=== PATIENT | male | born 1990 | race Caucasian/White ===

== ENCOUNTER 2020-07-06 13:23 | Inpatient (IN) ==
[2020-07-06] MEDS ORDERED: Al Hydrox/Mg Hydrox/Simet LIQ 30 ML UDC PO ONE (15:01)
[2020-07-06 15:50] LABS: ABS Eosinophils 0.2 10^3/ul (0-0.6); ABS Lymphocytes 1.5 10^3/ul (1.0-4.8); ABS Monocytes 0.7 10^3/ul (0-0.8); ABS Neutrophils 7.8 10^3/ul (1.5-7.7); Hematocrit 52 % (42-52); Lymphocyte % 14.4 %; Mean Corpuscular HGB Conc 34 g/dL (31-36); Mean Corpuscular Hemoglobin 32 pg (27-31); Mean Corpuscular Volume 93 fL (80-94); Mean Platelet Volume 8.2 fL (7.4-10.4); Platelet Count 428 10^3/uL (150-450); Red Blood Count 5.59 10^6 /uL (4.18-5.48); Red Cell Distribution Width 13 % (10-15); White Blood Count 10.2 10^3/uL (3.5-10.8)
[2020-07-06 17:07] LABS: ALT 24 U/L (7-52); Albumin 4.8 g/dL (3.2-5.2); Albumin/Globulin Ratio 1.2 (1-3); Alkaline Phosphatase 102 U/L (34-104); BUN/Creatinine Ratio 17.3 (8-20); Blood Urea Nitrogen 22 mg/dL (6-24); C Reactive Protein 1.75 mg/L (<8.01); Calcium 9.2 mg/dL (8.6-10.3); Chloride 91 mmol/L (101-111); EGFR African American 80.6 (>60); EGFR Non-African American 66.6 (>60); Globulin 3.9 g/dL (2-4); Glucose 410 mg/dL (70-100); Lipase 43 U/L (11.0-82.0); Sodium 124 mmol/L (135-145); Total Protein 8.7 g/dL (6.4-8.9)
[2020-07-06 17:09] LABS: Anion Gap 24 mmol/L (2-11); CO2 Carbon Dioxide 9 mmol/L (22-32)
[2020-07-06] MEDS ORDERED: NS 0.9% 1000 ml BAG 1,000 ML IV ONE (17:20)
[2020-07-06] MEDS ORDERED: NS 0.9% 1000 ml BAG 2,000 ML IV ONE (17:21)
[2020-07-06] MEDS ORDERED: Insulin Infusion 100unit/100mL 100 UNIT/100 ML BAG IV ONE (17:22)
[2020-07-06] MEDS ORDERED: NORMOSOL-R pH 7.4 1000 mL BAG 1,000 ML IV SCH (18:00)
[2020-07-06 18:47] LABS: BUN/Creatinine Ratio 18.8 (8-20); Calcium 8.9 mg/dL (8.6-10.3); EGFR African American 93.1 (>60)
[2020-07-06 19:14] LABS: Phosphorus 3.7 mg/dL (2.5-5.0)
[2020-07-06 19:23] LABS: Potassium 4.5 mmol/L (3.5-5.0)
[2020-07-06 19:39] LABS: Urine Appearance Clear; Urine Bilirubin Negative (Negative); Urine Blood 1+ (Negative); Urine Color Straw; Urine Glucose 3+(>=500 mg/dL) (Negative); Urine Ketones 2+ (Negative); Urine Nitrite Negative (Negative); Urine Protein 1+(30 mg/dL) (Negative); Urine Specific Gravity 1.027 (1.010-1.030); Urine Urobilinogen Negative (Negative)
[2020-07-06 19:44] LABS: Urine Bacteria Absent (Absent); Urine Red Blood Cell Trace(0-2/hpf) (Absent); Urine White Blood Cell Trace(0-5/hpf) (Absent)
[2020-07-06] MEDS: KCL 10 MEQ/50 ML IVPREMIX 10 MEQ/50 ML BAG IV SCH ×2 (20:58→22:18)
[2020-07-06] MEDS ORDERED: D5LR 1000 ml BAG 1,000 ML IV SCH (21:00)
[2020-07-06] MEDS ORDERED: Insulin Infusion 100unit/100mL 100 UNIT/100 ML BAG IV SCH (21:00)
[2020-07-06 22:51] LABS: BUN/Creatinine Ratio 17.3 (8-20); Calcium 7.5 mg/dL (8.6-10.3); EGFR African American 108.7 (>60); EGFR Non-African American 89.8 (>60); Potassium 3.5 mmol/L (3.5-5.0)
[2020-07-06] MEDS ORDERED: D10W 1000 ml BAG 1,000 ML IV SCH (23:00)
[2020-07-07 02:28] LABS: BUN/Creatinine Ratio 17.7 (8-20); Calcium 7.2 mg/dL (8.6-10.3); EGFR African American 139.3 (>60); EGFR Non-African American 115.2 (>60); Magnesium 1.9 mg/dL (1.9-2.7); Potassium 3.6 mmol/L (3.5-5.0)
[2020-07-07 02:30] LABS: Troponin I 0.01 ng/mL (<0.03)
[2020-07-07] MEDS ORDERED: NS 0.9% 1000 ml BAG 1,000 ML IV SCH (04:15)
[2020-07-07 05:55] LABS: BUN/Creatinine Ratio 16.3 (8-20); Calcium 7.5 mg/dL (8.6-10.3); EGFR African American 126.3 (>60); EGFR Non-African American 104.4 (>60); Magnesium 1.9 mg/dL (1.9-2.7); Potassium 3.6 mmol/L (3.5-5.0)
[2020-07-07] MEDS ORDERED: Dextrose 50% Syringe 50 ml 25 GM/50 ML SYRINGE IV PUSH PRN ×3 (06:17→21:17)
[2020-07-07] MEDS ORDERED: Insulin GLARGINE 100 un/ml 10 ml VIAL SUBCUT ONE (06:17)
[2020-07-07] MEDS ORDERED: Potassium Chlor 20 meq TAB.ER PO ONE (08:30)
[2020-07-07] MEDS ORDERED: Magnesium Sulfate 2 gm BAG 2 GM/50 ML BAG IVPB ONE (08:38)
[2020-07-07] MEDS ORDERED: Pantoprazole VIAL 40 MG VIAL IV SCH (09:00)
[2020-07-07] MEDS ORDERED: Insulin GLARGINE 100 un/ml 10 ml VIAL SUBCUT SCH (09:30)
[2020-07-07 11:50] LABS: BUN/Creatinine Ratio 16.4 (8-20); Calcium 7.5 mg/dL (8.6-10.3); EGFR African American 152.6 (>60); EGFR Non-African American 126.2 (>60); Magnesium 2.4 mg/dL (1.9-2.7); Potassium 3.7 mmol/L (3.5-5.0)
[2020-07-07 14:27] LABS: Urine Benzodiazepine Screen None Detected (None Detect); Urine Cannabinoids Screen None Detected (None Detect); Urine Opiates Screen None Detected (None Detect)
[2020-07-07 20:14] LABS: BUN/Creatinine Ratio 19.4 (8-20); Calcium 7.9 mg/dL (8.6-10.3); EGFR African American 155.1 (>60); EGFR Non-African American 128.2 (>60); Potassium 3.9 mmol/L (3.5-5.0)
[2020-07-07 20:50] LABS: Glucose Confirmatory 426 mg/dL (70-100)
[2020-07-08 08:19] LABS: ABS Basophils 0.1 10^3/ul (0-0.2); ABS Eosinophils 0.3 10^3/ul (0-0.6); ABS Lymphocytes 1.8 10^3/ul (1.0-4.8); ABS Monocytes 0.4 10^3/ul (0-0.8); ABS Neutrophils 2.7 10^3/ul (1.5-7.7); Eosinophil % 5.5 %; Hematocrit 36 % (42-52); Hemoglobin 12.6 g/dL (14.0-18.0); Lymphocyte % 34.4 %; Mean Corpuscular HGB Conc 35 g/dL (31-36); Mean Corpuscular Hemoglobin 32 pg (27-31); Mean Corpuscular Volume 91 fL (80-94); Mean Platelet Volume 8.4 fL (7.4-10.4); Platelet Count 258 10^3/uL (150-450); Red Blood Count 3.97 10^6 /uL (4.18-5.48); Red Cell Distribution Width 13 % (10-15); White Blood Count 5.4 10^3/uL (3.5-10.8)
[2020-07-08 08:26] LABS: BUN/Creatinine Ratio 17.4 (8-20); Calcium 7.8 mg/dL (8.6-10.3); EGFR African American 162.9 (>60); EGFR Non-African American 134.6 (>60); Magnesium 1.8 mg/dL (1.9-2.7); Potassium 3.3 mmol/L (3.5-5.0)
[2020-07-08] MEDS ORDERED: Insulin GLARGINE 100 un/ml 10 ml VIAL SUBCUT SCH ×2 (09:00)
[2020-07-08 18:22] VITALS: BP 127/70
== END 2020-07-08 17:00 | disposition home or self-care (01) | DRG 638 ==
LOC: ED 13:23 → ICU 18:08 → MED 07-07 11:19
PROVIDERS: ADMIT Internal Medicine; ATTEND Hospitalist

== ENCOUNTER 2021-02-21 21:17 | Inpatient (IN) ==
[2021-02-22] MEDS ORDERED: NS 0.9% 1000 ml BAG 1,000 ML IV ONE (01:00)
[2021-02-22 01:41] LABS: Urine Appearance Clear; Urine Bilirubin Negative (Negative); Urine Blood Negative (Negative); Urine Color Colorless; Urine Glucose 3+(>=500 mg/dL) (Negative); Urine Ketones 2+ (Negative); Urine Nitrite Negative (Negative); Urine Protein Negative (Negative); Urine Specific Gravity 1.025 (1.002-1.030); Urine Urobilinogen Negative (Negative)
[2021-02-22 02:00] LABS: Albumin 3.9 g/dL (3.2-5.2); Albumin/Globulin Ratio 1.6 (1-3); Alkaline Phosphatase 88 U/L (35-149); Anion Gap 18 mmol/L (2-11); C Reactive Protein < 1.00 mg/L (<8.01); CO2 Carbon Dioxide 13 mmol/L (22-32); Calcium 8.2 mg/dL (8.6-10.3); Chloride 92 mmol/L (101-111); Globulin 2.4 g/dL (2-4); Glucose 506 mg/dL (70-100); Sodium 123 mmol/L (135-145); Total Protein 6.3 g/dL (6.4-8.9)
[2021-02-22] MEDS ORDERED: Lactated Ringers 1000 ml BAG 1,000 ML IV ONE (02:44)
[2021-02-22 02:45] LABS: Blood Urea Nitrogen 14 mg/dL (6-24); Hemoglobin 12.9 g/dL (14.0-18.0)
[2021-02-22] MEDS ORDERED: Insulin Infusion 100unit/100mL 100 UNIT/100 ML BAG IV ONE (02:45)
[2021-02-22 02:50] LABS: Mean Corpuscular HGB Conc 33 g/dL (31-36); Mean Corpuscular Hemoglobin 32 pg (27-31)
[2021-02-22 02:51] LABS: Hematocrit 39 % (42-52); Mean Corpuscular Volume 96 fL (80-94); Mean Platelet Volume 8.5 fL (7.4-10.4); Platelet Count 361 10^3/uL (150-450); Red Blood Count 4.02 10^6 /uL (4.18-5.48); Red Cell Distribution Width 14 % (10-15); White Blood Count 5.7 10^3/uL (3.5-10.8)
[2021-02-22 02:52] LABS: ABS Basophils 0.1 10^3/ul (0-0.2); ABS Eosinophils 0.3 10^3/ul (0-0.6); ABS Lymphocytes 1.8 10^3/ul (1.0-4.8); ABS Monocytes 0.4 10^3/ul (0-0.8); ABS Neutrophils 3.1 10^3/ul (1.5-7.7); Eosinophil % 4.8 %; Lymphocyte % 31.4 %; Nucleated Red Blood Cells % 0.1
[2021-02-22] MEDS ORDERED: NORMOSOL-R pH 7.4 1000 mL BAG 1,000 ML IV ONE (03:25)
[2021-02-22] MEDS ORDERED: Dextrose 50% Syringe 50 ml 25 GM/50 ML SYRINGE IV PUSH PRN ×4 (03:25→22:24)
[2021-02-22] MEDS ORDERED: D5W 1/2 NS 1000 ml BAG 1,000 ML IV SCH (04:00)
[2021-02-22] MEDS ORDERED: Piperacillin/Tazobac ADVAN 3.375 GM in NS 0.9% 100 ml BAG 100 ML IV ONE (04:38)
[2021-02-22] MEDS ORDERED: Zosyn per Pharmacy NOTE FOLLOW UP SCH (05:00)
[2021-02-22] MEDS ORDERED: NORMOSOL-R pH 7.4 1000 mL BAG 1,000 ML IV SCH (05:00)
[2021-02-22] MEDS: Heparin 5000 UNITS/ML 1 mL VIAL SUBCUT SCH ×2 (05:04→17:20)
[2021-02-22 05:19] LABS: Troponin I 0.01 ng/mL (<0.03)
[2021-02-22 05:22] LABS: Anion Gap 15 mmol/L (2-11); CO2 Carbon Dioxide 12 mmol/L (22-32); Calcium 7.7 mg/dL (8.6-10.3); Chloride 99 mmol/L (101-111); Glucose 344 mg/dL (70-100); Sodium 126 mmol/L (135-145)
[2021-02-22 05:40] LABS: Blood Urea Nitrogen 13 mg/dL (6-24)
[2021-02-22 05:47] LABS: Rapid COVID-19 Molecular Undetected (Undetected)
[2021-02-22 07:56] LABS: Potassium, Whole Blood 3.9 mmol/L (3.4-4.5)
[2021-02-22 08:47] LABS: Anion Gap 10 mmol/L (2-11); Blood Urea Nitrogen 12 mg/dL (6-24); CO2 Carbon Dioxide 15 mmol/L (22-32); Calcium 7.7 mg/dL (8.6-10.3); Chloride 101 mmol/L (101-111); Glucose 154 mg/dL (70-100); Sodium 126 mmol/L (135-145)
[2021-02-22] MEDS ORDERED: Insulin GLARGINE 100 un/ml 10 ml VIAL SUBCUT ONE ×2 (10:36→22:24)
[2021-02-22 12:06] LABS: Troponin I 0.01 ng/mL (<0.03)
[2021-02-22 12:08] LABS: Anion Gap 9 mmol/L (2-11); CO2 Carbon Dioxide 17 mmol/L (22-32); Calcium 7.8 mg/dL (8.6-10.3); Chloride 101 mmol/L (101-111); Glucose 140 mg/dL (70-100); Sodium 127 mmol/L (135-145)
[2021-02-22] MEDS: ZOSYN 3.375 GM Q8H per EXTENDED INFUSION IV SCH ×2 (12:11→21:38)
[2021-02-22 12:12] LABS: Potassium, Whole Blood 3.3 mmol/L (3.4-4.5)
[2021-02-22] MEDS: Nicotine PATCH 14 MG/24 HR PATCH TRANSDERM SCH (12:13)
[2021-02-22 12:17] LABS: Blood Urea Nitrogen 10 mg/dL (6-24)
[2021-02-22] MEDS ORDERED: Sodium Phosphate IV 15 MMOLE in NS 0.9% 250 ml 250 ML IV ONE (12:18)
[2021-02-22] MEDS ORDERED: KCL 20 MEQ/100 ML IVPREMIX 20 MEQ/100 ML BAG IV ONE (13:00)
[2021-02-22] MEDS ORDERED: NS 0.9% 250 ml 250 ML ONE (13:11)
[2021-02-22 14:24] LABS: Blood Urea Nitrogen 9 mg/dL (6-24); CO2 Carbon Dioxide 18 mmol/L (22-32); Calcium 7.7 mg/dL (8.6-10.3); Chloride 102 mmol/L (101-111); Glucose 241 mg/dL (70-100); Sodium 130 mmol/L (135-145); Troponin I 0.01 ng/mL (<0.03)
[2021-02-22 14:44] LABS: Anion Gap 10 mmol/L (2-11)
[2021-02-22] MEDS: KCL 20 MEQ/100 ML IVPREMIX 20 MEQ/100 ML BAG IV SCH ×2 (15:06→18:56)
[2021-02-22 15:54] LABS: Potassium, Whole Blood 4.6 mmol/L (3.4-4.5)
[2021-02-22] MEDS: Lactated Ringers 1000 ml BAG 1,000 ML IV SCH (19:15)
[2021-02-22 20:00] LABS: Anion Gap 11 mmol/L (2-11); Blood Urea Nitrogen 11 mg/dL (6-24); CO2 Carbon Dioxide 18 mmol/L (22-32); Chloride 98 mmol/L (101-111); Magnesium 1.7 mg/dL (1.9-2.7); Phosphorus 3.1 mg/dL (2.5-5.0); Potassium 4.3 mmol/L (3.5-5.0); Sodium 127 mmol/L (135-145)
[2021-02-22 20:02] LABS: Glucose 540 mg/dL (70-100); Glucose Confirmatory 540 mg/dL (70-100)
[2021-02-22] MEDS ORDERED: Insulin GLARGINE 100 un/ml 10 ml VIAL SUBCUT SCH (21:00)
[2021-02-22 22:03] LABS: Glucose Confirmatory 443 mg/dL (70-100)
[2021-02-23] MEDS ORDERED: Insulin GLARGINE 100 un/ml 10 ml VIAL SUBCUT ONE (00:22)
[2021-02-23] MEDS: Heparin 5000 UNITS/ML 1 mL VIAL SUBCUT SCH ×2 (00:43→06:25)
[2021-02-23] MEDS: ZOSYN 3.375 GM Q8H per EXTENDED INFUSION IV SCH ×3 (01:24→13:18)
[2021-02-23] MEDS: Lactated Ringers 1000 ml BAG 1,000 ML IV SCH (01:31)
[2021-02-23 06:40] LABS: ABS Eosinophils 0.3 10^3/ul (0-0.6); ABS Lymphocytes 1.7 10^3/ul (1.0-4.8); ABS Monocytes 0.4 10^3/ul (0-0.8); ABS Neutrophils 2.3 10^3/ul (1.5-7.7); Hematocrit 35 % (42-52); Hemoglobin 12.5 g/dL (14.0-18.0); Lymphocyte % 35.8 %; Mean Corpuscular HGB Conc 36 g/dL (31-36); Mean Corpuscular Hemoglobin 34 pg (27-31); Mean Corpuscular Volume 94 fL (80-94); Nucleated Red Blood Cells % 0.1; Platelet Count 274 10^3/uL (150-450); Red Blood Count 3.73 10^6 /uL (4.18-5.48); Red Cell Distribution Width 13 % (10-15); White Blood Count 4.7 10^3/uL (3.5-10.8)
[2021-02-23 07:04] LABS: Calcium 8.1 mg/dL (8.6-10.3); HDL Cholesterol 27.7 mg/dL; Magnesium 1.6 mg/dL (1.9-2.7); Potassium 3.4 mmol/L (3.5-5.0)
[2021-02-23] MEDS ORDERED: Magnesium Sulf 4 GM/100 ML IV 4,000 MG/100 ML BAG IVPB ONE (07:32)
[2021-02-23] MEDS ORDERED: Dextrose 50% Syringe 50 ml 25 GM/50 ML SYRINGE IV PUSH PRN (07:35)
[2021-02-23] MEDS ORDERED: Lactated Ringers 1000 ml BAG 1,000 ML IV SCH (07:54)
[2021-02-23] MEDS: Nicotine PATCH 14 MG/24 HR PATCH TRANSDERM SCH (10:24)
[2021-02-23] MEDS: Potassium Chloride LIQUID 20 MEQ/15 ML LIQUID PO SCH ×2 (13:08→18:20)
[2021-02-23 17:38] LABS: Glucose Confirmatory 510 mg/dL (70-100)
[2021-02-23] MEDS ORDERED: Potassium Chlor 20 meq TAB.ER PO ONE (19:06)
[2021-02-23 20:36] LABS: Glucose Confirmatory 452 mg/dL (70-100)
[2021-02-23] MEDS ORDERED: Insulin GLARGINE 100 un/ml 10 ml VIAL SUBCUT SCH ×2 (21:00)
[2021-02-23] MEDS ORDERED: Enoxaparin 40 MG/0.4 ML SYR SUBCUT SCH (21:00)
[2021-02-24 06:14] LABS: Hematocrit 37 % (42-52); Mean Corpuscular HGB Conc 35 g/dL (31-36); Mean Corpuscular Hemoglobin 34 pg (27-31); Mean Corpuscular Volume 96 fL (80-94); Platelet Count 248 10^3/uL (150-450); Red Blood Count 3.86 10^6 /uL (4.18-5.48); Red Cell Distribution Width 14 % (10-15); White Blood Count 4.7 10^3/uL (3.5-10.8)
[2021-02-24 06:36] LABS: Calcium 8.3 mg/dL (8.6-10.3); Magnesium 1.9 mg/dL (1.9-2.7); Potassium 3.9 mmol/L (3.5-5.0)
[2021-02-24] MEDS: Nicotine PATCH 14 MG/24 HR PATCH TRANSDERM SCH (09:43)
[2021-02-24 11:24] VITALS: BP 110/69
== END 2021-02-24 12:20 | disposition home or self-care (01) | DRG 420 ==
LOC: ED 21:17 → MED 02-22 17:40 → SUATTDRO 02-22 18:35
PROVIDERS: ADMIT Internal Medicine; ATTEND Internal Medicine

== ENCOUNTER 2021-07-25 19:15 | Inpatient (IN) ==
[~2021-07-25 19:15] MED LIST: Potassium Chloride IV 40 MEQ in Lactated Ringers 1000 ml BAG 1,000 ML IVPB SCH
[2021-07-25] MEDS ORDERED: Lactated Ringers 1000 ml BAG 1,000 ML IV ONE ×3 (21:42→23:36)
[2021-07-25] MEDS ORDERED: fentaNYL 100 mcg/2 ml 50 MCG/ML VIAL IV SLOW PU ONE (21:42)
[2021-07-25] MEDS ORDERED: Piperacillin/Tazobac ADVAN 3.375 GM in NS 0.9% 100 ml BAG 100 ML IV ONE ×2 (21:42→23:36)
[2021-07-25 22:06] LABS: Venous Bicarbonate HCO3 16.8 mmol/L (24-28)
[2021-07-25 22:13] LABS: ABS Eosinophils 0.2 10^3/ul (0-0.6); ABS Lymphocytes 0.8 10^3/ul (1.0-4.8); ABS Monocytes 0.4 10^3/ul (0-0.8); ABS Neutrophils 4.4 10^3/ul (1.5-7.7); Eosinophil % 3.7 %; Hematocrit 39 % (42-52); Hemoglobin 13.4 g/dL (14.0-18.0); Lymphocyte % 13.6 %; Mean Corpuscular HGB Conc 34 g/dL (31-36); Mean Corpuscular Hemoglobin 32 pg (27-31); Mean Corpuscular Volume 93 fL (80-94); Mean Platelet Volume 7.4 fL (7.4-10.4); Nucleated Red Blood Cells % 0.1; Platelet Count 309 10^3/uL (150-450); Red Blood Count 4.21 10^6 /uL (4.18-5.48); Red Cell Distribution Width 14 % (10-15); White Blood Count 5.8 10^3/uL (3.5-10.8)
[2021-07-25] MEDS ORDERED: Nicotine PATCH 7 MG/24 HR PATCH TRANSDERM ONE (22:47)
[2021-07-25 22:50] LABS: Calcium 8.7 mg/dL (8.6-10.3); Potassium 3.4 mmol/L (3.5-5.0); eGFR CKD-EPI 127.4 (>60)
[2021-07-25] MEDS ORDERED: Dextrose 50% Syringe 50 ml 25 GM/50 ML SYRINGE IV PUSH PRN ×2 (22:56→23:40)
[2021-07-25] MEDS ORDERED: Insulin Infusion 100unit/100mL 100 UNIT/100 ML BAG IV SCH ×2 (23:00→23:45)
[2021-07-25] MEDS ORDERED: FLUID IV SCH (23:00)
[2021-07-25] MEDS ORDERED: KCL IV SCH (23:00)
[2021-07-25] MEDS ORDERED: Vancomycin 1,500 MG in NS 0.9% 250 ml 250 ML IVPB ONE (23:00)
[2021-07-25] MEDS ORDERED: NS IV SCH (23:00)
[2021-07-25 23:02] LABS: Urine Appearance Clear; Urine Bilirubin Negative (Negative); Urine Blood Negative (Negative); Urine Color Straw; Urine Glucose 3+(>=500 mg/dL) (Negative); Urine Ketones 2+ (Negative); Urine Nitrite Negative (Negative); Urine Protein Negative (Negative); Urine Specific Gravity 1.027 (1.002-1.030); Urine Urobilinogen Negative (Negative)
[2021-07-25] MEDS ORDERED: Iodixanol (CONTRAST) 320 MG/ML 100 ML SDV IV ONE (23:09)
[2021-07-25 23:19] LABS: Urine Benzodiazepine Screen None Detected (None Detect); Urine Cannabinoids Screen None Detected (None Detect); Urine Opiates Screen None Detected (None Detect)
[2021-07-25] MEDS ORDERED: Vancomycin 1,000 MG in NS 0.9% 250 ml 250 ML IVPB ONE (23:36)
[2021-07-25] MEDS ORDERED: Vancomycin per Pharmacy 1 EA NOTE FOLLOW UP SCH (23:45)
[2021-07-25] MEDS ORDERED: Zosyn per Pharmacy NOTE FOLLOW UP SCH (23:45)
[2021-07-25] MEDS ORDERED: D5W 1/2 NS 1000 ml BAG 1,000 ML IV SCH (23:45)
[2021-07-26 00:05] LABS: C Reactive Protein 32.8 mg/L (<8.01)
[2021-07-26] MEDS: KCL 10 MEQ/50 ML IVPREMIX 10 MEQ/50 ML BAG IV SCH ×3 (00:07→01:50)
[2021-07-26] MEDS ORDERED: Lidocaine 2% 10 ML VIAL INJ ONE (00:18)
[2021-07-26] MEDS ORDERED: Potassium Chloride IV 40 MEQ in Lactated Ringers 1000 ml BAG 1,000 ML IVPB SCH (00:30)
[2021-07-26] MEDS: Potassium Chloride IV 40 MEQ in Lactated Ringers 1000 ml BAG 1,000 ML IVPB SCH ×2 (00:35→06:46)
[2021-07-26] MEDS ORDERED: Lidocaine 2% PF 5 ML VIAL INJ ONE (00:45)
[2021-07-26] MEDS ORDERED: Morphine 4 MG/ML VIAL (1 ml) IV ONE (00:53)
[2021-07-26] MEDS ORDERED: Morphine 4 MG/ML VIAL (1 ml) ONE (00:55)
[2021-07-26] MEDS ORDERED: Lactated Ringers 1000 ml BAG 1,000 ML IV SCH (01:00)
[2021-07-26] MEDS ORDERED: D5W 1/2 NS KCl 20 meq 1000 ml 1,000 ML IV SCH ×2 (02:00→03:20)
[2021-07-26 02:12] LABS: Erythrocyte Sed Rate 70 mm/Hr (0-14)
[2021-07-26] MEDS: ZOSYN 3.375 GM Q8H per EXTENDED INFUSION IV SCH ×3 (02:41→17:26)
[2021-07-26 04:20] LABS: ABS Eosinophils 0.3 10^3/ul (0-0.6); ABS Lymphocytes 1.2 10^3/ul (1.0-4.8); ABS Monocytes 0.4 10^3/ul (0-0.8); ABS Neutrophils 3.2 10^3/ul (1.5-7.7); Eosinophil % 5.3 %; Hematocrit 36 % (42-52); Hemoglobin 12.4 g/dL (14.0-18.0); Lymphocyte % 23.1 %; Mean Corpuscular HGB Conc 35 g/dL (31-36); Mean Corpuscular Hemoglobin 32 pg (27-31); Mean Corpuscular Volume 93 fL (80-94); Mean Platelet Volume 7.2 fL (7.4-10.4); Platelet Count 324 10^3/uL (150-450); Red Blood Count 3.83 10^6 /uL (4.18-5.48); Red Cell Distribution Width 14 % (10-15); White Blood Count 5.1 10^3/uL (3.5-10.8)
[2021-07-26 04:30] LABS: INR 0.95 (0.86-1.15)
[2021-07-26 04:32] LABS: Calcium 8.8 mg/dL (8.6-10.3); Magnesium 1.7 mg/dL (1.9-2.7); Potassium 3.5 mmol/L (3.5-5.0)
[2021-07-26 04:38] LABS: eGFR CKD-EPI 131.1 (>60)
[2021-07-26] MEDS ORDERED: Dextrose 50% Syringe 50 ml 25 GM/50 ML SYRINGE IV PUSH PRN ×2 (04:42→08:10)
[2021-07-26] MEDS ORDERED: Magnesium Sulfate 2 gm BAG 2 GM/50 ML BAG IVPB ONE (04:43)
[2021-07-26] MEDS: Insulin GLARGINE 100 un/ml 10 ml VIAL SUBCUT ONE ×2 (04:51→05:39)
[2021-07-26] MEDS: Enoxaparin 40 MG/0.4 ML SYR SUBCUT SCH ×2 (04:52→21:45)
[2021-07-26 04:58] LABS: HDL Cholesterol 23.6 mg/dL
[2021-07-26] MEDS ORDERED: Potassium Phosphate IV 10 MMOLE in NS 0.9% 250 ml 250 ML IVPB ONE (05:30)
[2021-07-26 08:03] LABS: Glucose Confirmatory 429 mg/dL (70-100)
[2021-07-26 08:29] LABS: CO2 Carbon Dioxide 21 mmol/L (22-32); Chloride 102 mmol/L (101-111); Sodium 133 mmol/L (135-145)
[2021-07-26 08:34] LABS: Blood Urea Nitrogen 8 mg/dL (6-24); Glucose 412 mg/dL (70-100); eGFR CKD-EPI 125.3 (>60)
[2021-07-26 09:02] LABS: Anion Gap 10 mmol/L (2-11)
[2021-07-26 10:24] LABS: Calcium 7.9 mg/dL (8.6-10.3); Magnesium 1.9 mg/dL (1.9-2.7); Potassium 3.2 mmol/L (3.5-5.0); eGFR CKD-EPI 119.6 (>60)
[2021-07-26] MEDS ORDERED: Vancomycin 1,250 MG in NS 0.9% 250 ml 250 ML IVPB SCH (10:30)
[2021-07-26] MEDS ORDERED: Potassium Chlor 20 meq TAB.ER PO ONE (10:34)
[2021-07-26] MEDS: Magnesium Sulfate IV 1GM/100ML 1 GM/100 ML BAG IV ONE ×2 (10:52→11:31)
[2021-07-26] MEDS: KCL premix 10 MEQ/50 ML x 4 RUNS IV SCH ×4 (10:52→15:55)
[2021-07-26] MEDS ORDERED: KCL 20 MEQ/100 ML IVPREMIX 20 MEQ/100 ML BAG IV SCH (11:00)
[2021-07-26] MEDS ORDERED: Magnesium Sulfate IV 1 GM in NS 0.9% 100 ml BAG 100 ML IVPB ONE (12:00)
[2021-07-26] MEDS: Lidocaine PATCH 5% PATCH TRANSDERM SCH (15:54)
[2021-07-26 19:59] LABS: Calcium 7.7 mg/dL (8.6-10.3); Potassium 4.5 mmol/L (3.5-5.0); eGFR CKD-EPI 119.6 (>60)
[2021-07-26] MEDS ORDERED: Insulin GLARGINE 100 un/ml 10 ml VIAL SUBCUT ONE (21:00)
[2021-07-26 21:15] LABS: Glucose Confirmatory 435 mg/dL (70-100)
[2021-07-27] MEDS: ZOSYN 3.375 GM Q8H per EXTENDED INFUSION IV SCH ×3 (01:18→17:46)
[2021-07-27 05:51] LABS: Hematocrit 35 % (42-52); Hemoglobin 12.2 g/dL (14.0-18.0); Mean Corpuscular HGB Conc 35 g/dL (31-36); Mean Corpuscular Hemoglobin 32 pg (27-31); Mean Corpuscular Volume 93 fL (80-94); Mean Platelet Volume 7.2 fL (7.4-10.4); Platelet Count 271 10^3/uL (150-450); Red Blood Count 3.76 10^6 /uL (4.18-5.48); Red Cell Distribution Width 14 % (10-15); White Blood Count 3.7 10^3/uL (3.5-10.8)
[2021-07-27 06:15] LABS: Calcium 8.4 mg/dL (8.6-10.3); Magnesium 1.8 mg/dL (1.9-2.7); Potassium 3.7 mmol/L (3.5-5.0)
[2021-07-27 06:21] LABS: Phosphorus 3.9 mg/dL (2.5-5.0)
[2021-07-27] MEDS: Lidocaine PATCH 5% PATCH TRANSDERM SCH (09:12)
[2021-07-27] MEDS ORDERED: Vancomycin Trough Check NOTE FOLLOW UP ONE (10:00)
[2021-07-27 10:48] LABS: eGFR CKD-EPI 128.6 (>60)
[2021-07-27 15:40] LABS: Potassium 4.2 mmol/L (3.5-5.0); eGFR CKD-EPI 109.7 (>60)
[2021-07-27] MEDS: Enoxaparin 40 MG/0.4 ML SYR SUBCUT SCH (20:41)
[2021-07-27] MEDS ORDERED: Insulin GLARGINE 100 un/ml 10 ml VIAL SUBCUT SCH ×2 (21:00)
[2021-07-28] MEDS: ZOSYN 3.375 GM Q8H per EXTENDED INFUSION IV SCH ×2 (02:01→09:35)
[2021-07-28 06:37] LABS: ABS Eosinophils 0.3 10^3/ul (0-0.6); ABS Lymphocytes 1.4 10^3/ul (1.0-4.8); ABS Monocytes 0.3 10^3/ul (0-0.8); ABS Neutrophils 1.3 10^3/ul (1.5-7.7); Eosinophil % 8.1 %; Hematocrit 36 % (42-52); Hemoglobin 12.6 g/dL (14.0-18.0); Lymphocyte % 42.8 %; Mean Corpuscular HGB Conc 35 g/dL (31-36); Mean Corpuscular Hemoglobin 33 pg (27-31); Mean Corpuscular Volume 94 fL (80-94); Mean Platelet Volume 8.3 fL (7.4-10.4); Platelet Count 323 10^3/uL (150-450); Red Blood Count 3.84 10^6 /uL (4.18-5.48); Red Cell Distribution Width 14 % (10-15); White Blood Count 3.3 10^3/uL (3.5-10.8)
[2021-07-28 06:49] LABS: Calcium 8.7 mg/dL (8.6-10.3); Magnesium 1.9 mg/dL (1.9-2.7); Potassium 3.9 mmol/L (3.5-5.0); eGFR CKD-EPI 125.3 (>60)
[2021-07-28] MEDS ORDERED: Potassium Chlor 20 meq TAB.ER PO ONE (07:41)
[2021-07-28] MEDS: Lidocaine PATCH 5% PATCH TRANSDERM SCH (07:54)
[2021-07-28 08:13] LABS: Phosphorus 4.7 mg/dL (2.5-5.0)
[2021-07-28] MEDS ORDERED: Insulin GLARGINE 100 un/ml 10 ml VIAL SUBCUT SCH (10:00)
[2021-07-28 10:25] LABS: TSH Ultra Thyroid Stim Horm 1.09 mcIU/mL (0.34-5.60)
[2021-07-28 14:00] VITALS: BP 93/59
[2021-07-28] MEDS ORDERED: Amoxicillin/Clavul 500/125 TAB (Augmentin 500 mg tab) PO SCH (14:00)
== END 2021-07-28 14:05 | disposition home or self-care (01) | DRG 393 ==
LOC: ED 19:15 → EDHOLD 23:33 → SUATTDRO 23:33 → ICU 07-26 00:28 → MED 07-26 20:21
PROVIDERS: ADMIT Internal Medicine; ATTEND Internal Medicine